=== PATIENT | female | born 1990 | race American Indian/Alaskan Native ===

== ENCOUNTER 2018-06-12 08:26 | Emergency (ER) | payer OTHER ==
--- NOTE | 2018-06-12 08:47 | Emergency Department Report ---
Abscess Boil HPI - HPI Chief Complaint: Medical Clearance Stated Complaint: LUMP ON R BREAST Time Seen by Provider: 06/12/18 08:40 Duration: 2 Days Location: Other Severity: Mild History: Yes Purulent Drainage, No Fever, No Pain, No Numbness (right breast), No Foreign Body, No Previous History, No Insect Bite ( thank you) HPI: Patient is a pleasant 28-year-old who has a small abscess on her right breast. She saw got alarmed and thought it was cancer and came to the emergency room. It is come to ahead and draining. Past medical history migraines. Home medications none Home Medications: Previous Rx's Medication Instructions Recorded Last Taken Type Amoxicillin 500 mg PO BID #20 capsule 06/12/18 Unknown Rx Allergies/Adverse Reactions: Allergies Allergy/AdvReac Type Severity Reaction Status Date / Time No Known Allergies Allergy Unverified 06/12/18 08:26 ED Review of Systems ROS: Stated complaint: LUMP ON R BREAST Other details as noted in HPI Comment: All other systems reviewed and negative Constitutional: denies: chills Eyes: denies: eye pain ENT: denies: throat pain Respiratory: denies: cough Cardiovascular: denies: palpitations Endocrine: denies: flushing Gastrointestinal: denies: abdominal pain Genitourinary: denies: dysuria Musculoskeletal: denies: back pain Skin: as per HPI, lesions Neurological: denies: weakness Psychiatric: denies: anxiety Hematological/Lymphatic: denies: easy bleeding ED Past Medical Hx - Past Medical History Additional medical history: Migraine - Surgical History Past Surgical History?: No - Family History Family history: no significant - Social History Smoking Status: Never Smoker Substance Use Type: None - Medications Home Medications: Home Medications Medication Instructions Recorded Confirmed Last Taken Type Amoxicillin 500 mg PO BID #20 capsule 06/12/18 Unknown Rx ED Abscess Boil Physical Exam - Exam General: Vital signs noted. No distress. Alert and acting appropriately. Size: 1 cm Exam: Yes Tenderness, Yes Fluctuance, Yes Normal Neurologic Exam, Yes Normal Circulation, No Surrounding Cellulites/Erythema, No Lymphangitis, No Cr epitation, No Heart Murmur ED Course Vital Signs 06/12/18 08:31 Temperature 97.5 F L Pulse Rate 89 Respiratory 16 Rate Blood Pressure 130/90 O2 Sat by Pulse 98 Oximetry Critical care attestation.: If time is entered above; I have spent that time in minutes in the direct care of this critically ill patient, excluding procedure time. ED Medical Decision Making - Medical Decision Making Abscesses draining will treat patient with antibiotics. Patient is nonseptic non-ill appearing. Vital signs stable. No tachycardia or hypertension no fever ED Disposition Clinical Impression: Abscess Disposition: DC-01 TO HOME OR SELFCARE Is pt being admited?: No Does the pt Need Aspirin: No Condition: Stable Instructions: Abscess (ED) Additional Instructions: wArm compresses as we discussed. Epsom salts in the bathtub will help Follow-up with primary care if persistent referral has been given below. Referrals: [facility] [Outside] - 3-5 Days Time of Disposition: 08:45
== END 2018-06-12 09:01 | disposition home or self-care (01) ==
LOC: ED 08:26
CPT/HCPCS: 99282